=== PATIENT | male | born 1990 | race Hispanic/Latino ===

== ENCOUNTER 2018-02-22 06:40 | Observation (INO) | payer OTHER ==
--- NOTE | 2018-02-22 07:29 | ED PDOC ---
Lower Extremity Pain/Injury Time Seen by Provider: 02/22/18 07:00 Chief Complaint (Nursing): Lower Extremity Problem/Injury Chief Complaint (Provider): Lower Extremity Problem/Injury History Per: Patient History/Exam Limitations: no limitations Onset/Duration Of Symptoms: Days (1) Additional Complaint(s): 27 years old male presents to the ED with complaints of right knee pain associated with swelling after twisting it yesterday. Patient reports he is able to bind his knee but feels pain when putting his leg up to put on socks. He denies having knee x-ray before. He is requesting Dr Luna for orthopedics. PMD: non provided Past Medical History Reviewed: Historical Data, Nursing Documentation, Vital Signs Vital Signs: Last Vital Signs Temp 98 F 02/22/18 06:47 Pulse 66 02/22/18 06:47 Resp 18 02/22/18 06:47 BP 125/70 02/22/18 06:47 Pulse Ox 97 02/22/18 06:47 - Medical History PMH: No Chronic Diseases - Surgical History Surgical History: No Surg Hx - Family History Family History: States: Unknown Family Hx - Social History Current smoker - smoking cessation education provided: No Alcohol: Social Drugs: Denies - Home Medications Home Medications: Ambulatory Orders Medication Instructions Recorded Ibuprofen [Motrin] 600 mg PO Q6H PRN #20 tab 02/22/18 - Allergies Allergies/Adverse Reactions: Allergies Allergy/AdvReac Type Severity Reaction Status Date / Time Penicillins Allergy RASH Verified 02/22/18 06:47 Review of Systems ROS Statement: Except As Marked, All Systems Reviewed And Found Negative Musculoskeletal: Positive for: Leg Pain (Right knee) Physical Exam - Reviewed Nursing Documentation Reviewed: Yes Vital Signs Reviewed: Yes - Physical Exam Appears: Positive for: Non-toxic, No Acute Distress Head Exam: Positive for: ATRAUMATIC, NORMOCEPHALIC Skin: Positive for: Normal Color, Warm, Dry Eye Exam: Positive for: Normal appearance ENT: Positive for: Normal ENT Inspection Neck: Positive for: Normal Cardiovascular/Chest: Positive for: Regular Rate, Rhythm. Negative for: Murmur Respiratory: Positive for: Normal Breath Sounds. Negative for: Wheezing Gastrointestinal/Abdominal: Positive for: Normal Exam, Soft. Negative for: Tenderness Extremity: Positive for: Tenderness (slight to medial aspect of right knee), Swelling (slight to medial aspect of right knee) Neurologic/Psych: Positive for: Alert, Oriented - Laboratory Results Result Diagrams: 02/22/18 07:43 02/22/18 07:43 - ECG O2 Sat by Pulse Oximetry: 97 (RA) Pulse Ox Interpretation: Normal Medical Decision Making Medical Decision Making: Time: 714 Initial Impression: R knee pain, rule out fracture or ligament injury Initial Plan: --Type and screen --CMP --CBC --Prothrombin Time --Knee X-Ray w/o Contrast 1033 Knee MRI Findings: Anterior cruciate ligament is preserved. Posterior cruciate ligament is preserved. Linear increased signal seen within the posterior horn of the medial meniscus suggestive for grade 1 intrasubstance degeneration and or intrasubstance partial tearing. Linear increased signal within the anterior root and horn of the lateral meniscus also suggestive for grade 1 intrasubstance degeneration and or intrasubstance partial tearing. Prominent fraying and irregularity with increased signal noted at the level of the proximal and midportion of the medial collateral ligament suggestive for prominent partial tearing with associated high grade strain. In addition, there is marked fraying and irregularity seen at the posterior aspect of the medial patellar retinaculum suggestive for prominent partial tearing. Suggestion of mild lateral sided subluxation of the bony patella with some adjacent bone bruising noted within the lateral aspect of the lateral femoral condyle. This raises the concern for possible patellar dislocation. Clinical correlation. Curvilinear focal area of signal abnormality with increased STIR signal seen in the mid lateral patellar facet suggestive for cartilage fibrillation. Lateral collateral ligament complex structures are preserved. Quadriceps tendon is preserved. Mild proximal patellar tendinopathy. Prominent fluid and edema seen within the anterior medial subcutaneous soft tissues. Femorotibial articular cartilage is preserved. No significant suprapatellar joint effusion. Impression: 1. Prominent fraying and irregularity with increased signal noted at the level of the proximal and midportion of the medial collateral ligament suggestive for prominent partial tearing with associated high grade strain. In addition, there is marked fraying and irregularity seen at the posterior aspect of the medial patellar retinaculum suggestive for prominent partial tearing. Suggestion of mild lateral sided subluxation of the bony patella with some adjacent bone bruising noted within the lateral aspect of the lateral femoral condyle. This raises the concern for possible transient patellar dislocation. Clinical correlation. Curvilinear focal area of signal abnormality with increased STIR signal seen in the mid lateral patellar facet suggestive for cartilage fibrillation and or possible tear. 2. Linear increased signal seen within the posterior horn of the medial meniscus suggestive for grade 1 intrasubstance degeneration and or intrasubstance partial tearing. 3. Linear increased signal within the anterior root and horn of the lateral meniscus also suggestive for grade 1 intrasubstance degeneration and or intrasubstance partial tearing. 4. Mild proximal patellar tendinopathy. 5. Prominent fluid and edema seen within the anterior medial subcutaneous soft tissues. 1156 --Patient is aware of results. Dr Luna aware of results,dr luna recommended admission under hospitalist for possible surgery but pt did not want to be admitted, he opted for outpatient follow up. pt given the knee immobilizer and crutches and told to follow up with DR luna this week (thursday). pt agreeable and pleased with plan for outpt. -- ----- Scribe Attestation: Documented by Yas Peterson, acting as a scribe for Chelsey Marie MD. Provider Scribe Attestation: All medical record entries made by the Scribe were at my direction and personally dictated by me. I have reviewed the chart and agree that the record accurately reflects my personal performance of the history, physical exam, medical decision making, and the department course for this patient. I have also personally directed, reviewed, and agree with the discharge instructions and disposition. Disposition - Clinical Impression Clinical Impression: Tear of MCL (medial collateral ligament) of knee - Patient ED Disposition Is Patient to be Admitted: No Counseled Patient/Family Regarding: Studies Performed, Diagnosis, Need For Followup - Disposition Disposition: Routine/Home Disposition Time: 11:25 Condition: IMPROVED
[2018-02-22 07:54] LABS: INR 1.1 (0.9-1.2); PROTHROMBIN TIME 11.8 Seconds (9.8-13.1)
[2018-02-22 08:00] LABS: BASO # 0.1 K/uL (0.0-0.2); EOS # 0.4 K/uL (0.0-0.7); EOS % 4.9 % (0.0-4.0); HEMOGLOBIN 15.7 g/dL (12.0-18.0); LYMPH # 2.7 K/uL (1.0-4.3); MEAN CELL VOLUME 85.5 fl (80.0-94.0); MEAN CORPUSCULAR HEMOGLOBIN 29.4 pg (27.0-31.0); MEAN CORPUSCULAR HGB CONC 34.4 g/dL (33.0-37.0); MEAN PLATELET VOLUME 7.8 fl (7.2-11.7); MONO # 0.7 K/uL (0.0-0.8); MONO % 9.4 % (0.0-10.0); NEUT % 50.7 % (50.0-75.0); NRBC % 0.1 % (0.0-0.0); RBC 5.34 Mil/uL (4.40-5.90); RED CELL DISTRIBUTION WIDTH 12.9 % (11.5-14.5)
[2018-02-22 08:01] LABS: ALB/GLOB RATIO 1.2 (1.0-2.1); ALBUMIN 4.2 g/dL (3.5-5.0); ALT/SGPT 61 U/L (21-72); AST/SGOT 32 U/L (17-59); BLOOD UREA NITROGEN 17 mg/dl (9-20); CALCIUM 9.4 mg/dL (8.4-10.2); GFR AFRICAN-AMERICAN > 60; GFR NON-AFRICAN AMERICAN > 60
[2018-02-22 09:41] LABS: PARTIAL THROMBOPLASTIN TIME 37.9 Seconds (25.6-37.1)
--- NOTE | 2018-02-22 10:08 | CP.PCM.CON ---
History of Present Illness - History of Present Illness History of Present Illness: Orthopedic consult: Patient is a 27 y/o male with no significant PMH who presents to the ER with c/ o right knee pain. Patient requested to see Dr. Luna for orthopedic consultation. He describes an injury to his right knee after being tackled which occurred 2 days ago during football practice. The mechanism of injury was a twisting and valgus stress. He experienced a sharp sudden pain but was able to ambulate and continue with the rest practice. The same night, he began to experience progressive pain and swelling. Currently, his pain is dull and aching in quality. The pain is intermittent, worse at night and with certain activities. The pain worsens with activities such as crossing his leg to tie his shoe and getting into his car. There is no pain at rest and when he is walking in a straight path. The pain is associated with swelling. He denies radiation of pain, numbness or tingling. He also denies CP/SOB/N/V/D/fever/ dysuria/melena. Review of Systems - Review of Systems All systems: reviewed and no additional remarkable complaints except Review of Systems: as per HPI Past Patient History - Past Medical History & Family History Past Medical History?: No Past Family History: Reviewed and not pertinent - Past Social History Smoking Status: Current Some Days Smoker Alcohol: Social Drugs: Denies - CARDIAC Hx Cardiac Disorders: No - PULMONARY Hx Respiratory Disorders: No - NEUROLOGICAL Hx Neurological Disorder: No - HEENT Hx HEENT Problems: No - RENAL Hx Chronic Kidney Disease: No - ENDOCRINE/METABOLIC Hx Endocrine Disorders: No - HEMATOLOGICAL/ONCOLOGICAL Hx Blood Disorders: No - INTEGUMENTARY Hx Dermatological Problems: No - MUSCULOSKELETAL/RHEUMATOLOGICAL Hx Musculoskeletal Disorders: No - GASTROINTESTINAL Hx Gastrointestinal Disorders: No - GENITOURINARY/GYNECOLOGICAL Hx Genitourinary Disorders: No - PSYCHIATRIC Hx Psychophysiologic Disorder: No Hx Substance Use: No - SURGICAL HISTORY Hx Surgeries: No - ANESTHESIA Hx Anesthesia: No Hx Anesthesia Reactions: No Meds Home Medications: Home Medication List Medication Instructions Recorded Confirmed Type Ibuprofen [Motrin] 600 mg PO Q6H PRN #20 tab 02/22/18 Rx Allergies/Adverse Reactions: Allergies Allergy/AdvReac Type Severity Reaction Status Date / Time Penicillins Allergy RASH Verified 02/22/18 06:47 Physical Exam - Constitutional Appears: Well, No Acute Distress - Head Exam Head Exam: ATRAUMATIC, NORMOCEPHALIC - Eye Exam Eye Exam: EOMI, Normal appearance, PERRL - ENT Exam ENT Exam: Mucous Membranes Moist, Normal Exam - Respiratory Exam Respiratory Exam: Clear to Auscultation Bilateral, NORMAL BREATHING PATTERN - Cardiovascular Exam Cardiovascular Exam: REGULAR RHYTHM - GI/Abdominal Exam GI & Abdominal Exam: Normal Bowel Sounds, Soft - Extremities Exam Additional comments: R knee: mild swelling tenderness along the midportion of MCL, medial joint line tenderness pain with valgus stress test, neg lachmans, neg anterior/posterior drawer test, neg varus stress test, neg McMurrays test medially/laterally sensation intact SP/DP/TN motor intact EHL/FHL/TA/G/Q/HS pedal pulses intact comps soft NT L knee: no swelling, no tenderness neg valgus/varus stress test, neg lachmans, neg anterior/posterior drawer test, neg McMurrays test medially/laterally sensation intact SP/DP/TN motor intact EHL/FHL/TA/G/Q/HS pedal pulses intact comps soft NT - Neurological Exam Neurological exam: Alert, Oriented x3 - Psychiatric Exam Psychiatric exam: Normal Affect, Normal Mood - Skin Skin Exam: Normal Color, Warm Results - Vital Signs Recent Vital Signs: Last Vital Signs Temp 98 F 02/22/18 06:47 Pulse 66 02/22/18 06:47 Resp 18 02/22/18 06:47 BP 125/70 02/22/18 06:47 Pulse Ox 97 02/22/18 07:35 - Labs Result Diagrams: 02/22/18 07:43 02/22/18 07:43 Labs: Laboratory Results - last 24 hr 02/22/18 02/22/18 02/22/18 07:28 07:43 07:43 WBC 8.0 RBC 5.34 Hgb 15.7 Hct 45.7 MCV 85.5 MCH 29.4 MCHC 34.4 RDW 12.9 Plt Count 283 MPV 7.8 Neut % (Auto) 50.7 Lymph % (Auto) 34.0 [place] % (Auto) 9.4 Eos % (Auto) 4.9 H Baso % (Auto) 1.0 Neut # (Auto) 4.0 Lymph # (Auto) 2.7 [place] # (Auto) 0.7 Eos # (Auto) 0.4 Baso # (Auto) 0.1 PT INR APTT Sodium 142 Potassium 4.2 Chloride 104 Carbon Dioxide 25 Anion Gap 17 BUN 17 Creatinine 1.1 Est GFR ( Amer) > 60 Est GFR (Non-Af Amer) > 60 Random Glucose 104 Calcium 9.4 Total Bilirubin 2.8 H AST 32 ALT 61 Alkaline Phosphatase 57 Total Protein 7.9 Albumin 4.2 Globulin 3.7 Albumin/Globulin Ratio 1.2 Blood Type O POSITIVE Antibody Screen Negative BBK History Checked No verified bt 02/22/18 07:43 WBC RBC Hgb Hct MCV MCH MCHC RDW Plt Count MPV Neut % (Auto) Lymph % (Auto) [place] % (Auto) Eos % (Auto) Baso % (Auto) Neut # (Auto) Lymph # (Auto) [place] # (Auto) Eos # (Auto) Baso # (Auto) PT 11.8 INR 1.1 APTT 37.9 H Sodium Potassium Chloride Carbon Dioxide Anion Gap BUN Creatinine Est GFR ( Amer) Est GFR (Non-Af Amer) Random Glucose Calcium Total Bilirubin AST ALT Alkaline Phosphatase Total Protein Albumin Globulin Albumin/Globulin Ratio Blood Type Antibody Screen BBK History Checked Assessment & Plan (1) Tear of MCL (medial collateral ligament) of knee Assessment and Plan: -Patient was recommended surgical management with internal MCL bracing in OR today. Patient refuses surgery at this time and chooses to pursue conservative management for now. -Knee immobilizer -WBAT with crutches -Ice, elevation -F/u in the office this Thursday02/26/18, call for appt -above d/w Dr. Luna in agreement Status: Acute (2) Patellar subluxation Assessment and Plan: -knee immobilizer Status: Acute Radiology Interpretation - Notes: Notes:: Accession No. : [id number] Patient Name / ID : SAADIA ARGUETA / [id number] Exam Date : 02/22/2018 07:51:03 ( Approved ) Study Comment : Sex / Age : M / 27Y Creator : Celso Cam MD Dictator : Celso Cam MD Surgical Aides Teacher : Sanitarian Aide : Celso Cam MD Approver2 : Report Date : 02/22/2018 10:33:06 My Comment : MRI right knee History: Knee pain. Knee injury. Comparison: None available. Technique: Multi-echo multiplanar sequences were performed through the right knee without the use of intravenous contrast. Findings: Anterior cruciate ligament is preserved. Posterior cruciate ligament is preserved. Linear increased signal seen within the posterior horn of the medial meniscus suggestive for grade 1 intrasubstance degeneration and or intrasubstance partial tearing. Linear increased signal within the anterior root and horn of the lateral meniscus also suggestive for grade 1 intrasubstance degeneration and or intrasubstance partial tearing. Prominent fraying and irregularity with increased signal noted at the level of the proximal and midportion of the medial collateral ligament suggestive for prominent partial tearing with associated high grade strain. In addition, there is marked fraying and irregularity seen at the posterior aspect of the medial patellar retinaculum suggestive for prominent partial tearing. Suggestion of mild lateral sided subluxation of the bony patella with some adjacent bone bruising noted within the lateral aspect of the lateral femoral condyle. This raises the concern for possible patellar dislocation. Clinical correlation. Curvilinear focal area of signal abnormality with increased STIR signal seen in the mid lateral patellar facet suggestive for cartilage fibrillation. Lateral collateral ligament complex structures are preserved. Quadriceps tendon is preserved. Mild proximal patellar tendinopathy. Prominent fluid and edema seen within the anterior medial subcutaneous soft tissues. Femorotibial articular cartilage is preserved. No significant suprapatellar joint effusion. Impression: 1. Prominent fraying and irregularity with increased signal noted at the level of the proximal and midportion of the medial collateral ligament suggestive for prominent partial tearing with associated high grade strain. In addition, there is marked fraying and irregularity seen at the posterior aspect of the medial patellar retinaculum suggestive for prominent partial tearing. Suggestion of mild lateral sided subluxation of the bony patella with some adjacent bone bruising noted within the lateral aspect of the lateral femoral condyle. This raises the concern for possible transient patellar dislocation. Clinical correlation. Curvilinear focal area of signal abnormality with increased STIR signal seen in the mid lateral patellar facet suggestive for cartilage fibrillation and or possible tear. 2. Linear increased signal seen within the posterior horn of the medial meniscus suggestive for grade 1 intrasubstance degeneration and or intrasubstance partial tearing. 3. Linear increased signal within the anterior root and horn of the lateral meniscus also suggestive for grade 1 intrasubstance degeneration and or intrasubstance partial tearing. 4. Mild proximal patellar tendinopathy. 5. Prominent fluid and edema seen within the anterior medial subcutaneous soft tissues.
--- NOTE | 2018-02-22 10:34 | MRI ---
MRI right knee History: Knee pain. Knee injury. Comparison: None available. Technique: Multi-echo multiplanar sequences were performed through the right knee without the use of intravenous contrast. Findings: Anterior cruciate ligament is preserved. Posterior cruciate ligament is preserved. Linear increased signal seen within the posterior horn of the medial meniscus suggestive for grade 1 intrasubstance degeneration and or intrasubstance partial tearing. Linear increased signal within the anterior root and horn of the lateral meniscus also suggestive for grade 1 intrasubstance degeneration and or intrasubstance partial tearing. Prominent fraying and irregularity with increased signal noted at the level of the proximal and midportion of the medial collateral ligament suggestive for prominent partial tearing with associated high grade strain. In addition, there is marked fraying and irregularity seen at the posterior aspect of the medial patellar retinaculum suggestive for prominent partial tearing. Suggestion of mild lateral sided subluxation of the bony patella with some adjacent bone bruising noted within the lateral aspect of the lateral femoral condyle. This raises the concern for possible patellar dislocation. Clinical correlation. Curvilinear focal area of signal abnormality with increased STIR signal seen in the mid lateral patellar facet suggestive for cartilage fibrillation. Lateral collateral ligament complex structures are preserved. Quadriceps tendon is preserved. Mild proximal patellar tendinopathy. Prominent fluid and edema seen within the anterior medial subcutaneous soft tissues. Femorotibial articular cartilage is preserved. No significant suprapatellar joint effusion. Impression: 1. Prominent fraying and irregularity with increased signal noted at the level of the proximal and midportion of the medial collateral ligament suggestive for prominent partial tearing with associated high grade strain. In addition, there is marked fraying and irregularity seen at the posterior aspect of the medial patellar retinaculum suggestive for prominent partial tearing. Suggestion of mild lateral sided subluxation of the bony patella with some adjacent bone bruising noted within the lateral aspect of the lateral femoral condyle. This raises the concern for possible transient patellar dislocation. Clinical correlation. Curvilinear focal area of signal abnormality with increased STIR signal seen in the mid lateral patellar facet suggestive for cartilage fibrillation and or possible tear. 2. Linear increased signal seen within the posterior horn of the medial meniscus suggestive for grade 1 intrasubstance degeneration and or intrasubstance partial tearing. 3. Linear increased signal within the anterior root and horn of the lateral meniscus also suggestive for grade 1 intrasubstance degeneration and or intrasubstance partial tearing. 4. Mild proximal patellar tendinopathy. 5. Prominent fluid and edema seen within the anterior medial subcutaneous soft tissues.
[2018-02-22 12:16] VITALS: BP 132/70; PULSE 77; RESP 16; TEMP 97.8
[2018-02-22 14:57] VITALS: O2SAT 97
== END 2018-02-22 13:57 | disposition home or self-care (01) ==
LOC: H.ER 06:40 → H.ERHOLD 11:09
DX: S83.411A Sprain of medial collateral ligament of right knee, initial encounter (principal); S83.001A Unspecified subluxation of right patella, initial encounter; X50.1XXA Overexertion from prolonged static or awkward postures, initial encounter; Y93.89 Activity, other specified; F17.210 Nicotine dependence, cigarettes, uncomplicated
CPT/HCPCS: 73721; 80053; 85025; 85610; 85730; 86850; 86900; 99284; G0378